=== PATIENT | female | born 2000 | race Caucasian/White ===

== ENCOUNTER → 2024-07-16 06:16 | Day surgery (SDC) | payer OTHER, SELFPAY | LOC: GI 06:16 | PROVIDERS: ATTENDING PHYSICIAN Internal Medicine | DX: K52.832 Lymphocytic colitis (principal); K29.50 Unspecified chronic gastritis without bleeding; D50.9 Iron deficiency anemia, unspecified | CPT/HCPCS: 45380; 43239; 88305; 88342 ==

== ENCOUNTER 2025-06-30 06:26 | Day surgery (SDC) | payer OTHER, SELFPAY | END 2025-06-30 12:38 | disposition home or self-care (01) | LOC: GI 06:26 | PROVIDERS: ATTENDING PHYSICIAN Internal Medicine Gastroenterology; FAMILY PHYSICIAN Family Medicine | DX: R12 Heartburn (principal) | CPT/HCPCS: 43239; 88305; 88342 ==